=== PATIENT | female | born 1980 | race Caucasian/White ===

== ENCOUNTER 2023-05-14 09:06 | Outpatient (AMB) | payer OTHER, SELFPAY ==
--- NOTE | 2023-05-14 09:38 | MHC.OFFWIV ---
Intake Vital Signs 05/14/23 09:39 Height 5 ft 10 in Weight 201 lb BMI 28.8 BP 120/76 Blood Pressure Location Lt brachial Position Sitting Pulse 78 Pulse Source Pulse Oximeter Temp 97.1 F Temp Source Temporal Artery Scan Pulse Oximetry (%) 98 Oxygen Delivery Method Room Air Intake Visit Reasons: EP upper back pain between shoulders Intake Note: pt is here today for upper back pain between shoulders started today Patient Tobacco Use Status: Never used Tobacco Allergies No Known Allergies Allergy (Verified 05/14/23 10:03) Medication List - Last Reconciled 05/14/23 by RACHEL Campbell No Known Home Meds Do you need a note to return to daycare/school/sports/work: Yes HPI HPI Comments History of Present Illness Details Patient is a 43-year-old female in today for a sick visit. Patient states that she was bending over and developed pain in her upper back between her shoulder blades. Denies hearing any popping or cracking. Patient does have tenderness on palpation to cervical spine. Patient has full range of motion of rotation of neck, able to put neck to chin with some discomfort. Patient denies any tingling or numbness. Patient has not taken any medication for relief. [facility] Social History Patient Tobacco Use Status: Never used Tobacco Review of Systems Const All systems reviewed & are unremarkable except as noted in HPI and below Eyes Denies blurry vision ENT Denies dizziness Card Denies chest pain and Denies dyspnea Resp Denies dyspnea Musc Reports stiffness (cervical area) and Denies tingling Neuro Denies dizziness, Denies tingling and Denies paresthesias Physical Exam Vital Signs: Last Vital Signs Temp 97.1 F 05/14/23 09:39 Pulse 78 05/14/23 09:39 BP 120/76 05/14/23 09:39 Pulse Ox 98 05/14/23 09:39 Oxygen Delivery Method Room Air 05/14/23 09:39 BMI result Body Mass Index 28.8 Vital signs reviewed stable. Const Other: Appearance: Alert.? Oriented X3.? No acute distress.? Head: Normocephalic, atraumatic. Eyes: Pupils equal, round and reactive to light.? Neck: Normal inspection.? Neck supple.? CVS: Normal heart rate and rhythm.? Pulses normal.? Respiratory: No respiratory distress.? Breath sounds normal.? Back: No midline tenderness, + little C-spine tenderness to palpation, Limited range of motion to rotation. Neuro: Oriented X 3.? No motor deficit.? No sensory deficit. CN 2-12 intact Assessment & Plan Assessment & Plan (1) Upper back pain: Comment: Will obtain x-ray of cervical spine. Patient likely has injury to paraspinal muscles. Will prescribe meloxicam and cyclobenzaprine to be taken as directed. Patient has been instructed on signs of worsening symptoms and when to report back to the walk-in or when to present to the ED Code(s): M54.9 - Dorsalgia, unspecified Plan: Take your medications as prescribed. If you were prescribed antibiotics today, it is important that you take your medication to their entirety, do not skip any doses, do not finish them early. Follow-up with your primary care provider this week. Return to the emergency department with new or worsening symptoms. Such as fevers, chills, chest pain, shortness of breath, nausea, vomiting, dizziness, headache, vision changes, lethargy In case of emergency call 911 Plan Follow-up with PCP. Orders: Orders XR cervical spine 2V Today M54.9 - Dorsalgia, unspecified Medications: New meloxicam Do not combine with other NSAIDs 15 mg PO DAILY 14 tabs 0RF cyclobenzaprine 5 mg PO BEDTIME PRN 10 tabs 0RF muscle spasm Coding Level of Care Code New Pt Level 3 (09854) Diagnoses Upper back pain M54.9 Time Spent (min) 28
[2023-05-14 09:39] VITALS: BP 120/76; PULSE 78; TEMP 36.2; O2SAT 98; BMI 28.8
== END 2023-05-14 11:40 | disposition home or self-care (01) ==
PROVIDERS: PCP Family Medicine; Visit Provider Nurse Practitioner Primary Care
DX: M54.9 Dorsalgia, unspecified (principal)
CPT/HCPCS: 99203

== ENCOUNTER 2023-05-14 10:00 | Outpatient (REF) | payer OTHER, SELFPAY ==
--- NOTE | ~2023-05-14 | XR_ITS ---
EXAMINATION: XR CERVICAL SPINE CLINICAL INFORMATION: Neck pain COMPARISON: None available. TECHNIQUE: 3 views of the cervical spine were obtained. FINDINGS: There are no prevertebral soft tissue or bony abnormalities demonstrated. No compression fractures or subluxations are identified. Alignment is maintained at the atlanto-axial articulation. The disc spaces are preserved. No endplate changes are seen. The prevertebral soft tissues are normal. The foramina are patent. XR/XR cervical spine 2V IMPRESSION: Unremarkable examination.
== END 2023-05-14 10:01 | disposition home or self-care (01) ==
LOC: HO.HMGCX 10:00
PROVIDERS: PCP Family Medicine; Visit Provider Nurse Practitioner Primary Care
DX: M54.2 Cervicalgia (principal)
CPT/HCPCS: 72040